=== PATIENT | female | born 1955 | race African-American/Black ===

== ENCOUNTER 2020-10-09 08:29 | Outpatient (CLI) | payer OTHER, SELFPAY | END 2020-10-09 08:30 | disposition home or self-care (01) | LOC: ANHCOVIDVC 08:29 | DX: Z23 Encounter for immunization (principal) | CPT/HCPCS: 0001A; 91300 ==

== ENCOUNTER 2020-10-30 08:21 | Outpatient (CLI) | payer OTHER, SELFPAY | END 2020-10-30 08:22 | disposition home or self-care (01) | LOC: ANHCOVIDVC 08:21 | DX: Z23 Encounter for immunization (principal) | CPT/HCPCS: 0002A; 91300 ==

== ENCOUNTER 2021-08-13 16:51 | Emergency (ER) | payer OTHER, SELFPAY ==
[2021-08-13] VITALS (11 sets, daily range): BP systolic 113–223; BP diastolic 61–98; PULSE 53–96; RESP 13–19; TEMP 36.1; O2SAT 100
--- NOTE | ~2021-08-13 | XR_ITS ---
EXAMINATION: XR chest 2V DATE: 08/13/2021 19:55 INDICATION: Hypertension TECHNIQUE: AP and lateral views of the chest are obtained. COMPARISON: 09/28/2012 FINDINGS: The lungs are free of acute opacities. There is no pleural effusion or pneumothorax. The ca rdiomediastinal silhouette is normal. There is mild thoracic spondylosis. IMPRESSION: 1. No acute cardiopulmonary abnormality. Reviewed, dictated and finalized at location F. DDLE BUG DRIVER
--- NOTE | 2021-08-13 18:43 | PC.NURSE ---
pt states she was having dizziness and lightheadedness this am. bp was high. pt then took sudaphed for sinus congestion. later started losartan 50 mg for htn. states has been unable to get bp down. pt also noting some left lower quad pain and pain into groin.
--- NOTE | 2021-08-13 19:20 | ED.GENADULT ---
HPI - General Adult General Chief complaint: Recheck/Abnormal Lab/Rx Stated complaint: high blood pressure Time Seen by Provider: 08/13/21 18:40 History of Present Illness HPI narrative: 66-year-old female with newly diagnosed hypertension presents to the emergency room for evaluation of elevated blood pressure. Patient states her blood pressures have been elevated over the last few weeks. Patient did have follow-up with her primary care physician and was started on losartan 50 mg p.o. Patient did have her first dose of losartan today. Patient states that when she woke up this morning she was having some sinus congestion which is not uncommon for her and she took some Sudafed. Patient states over the course of the day she has had worsening blood pressures. Patient's primary complaint is sinus congestion. Patient denies any headache. Patient denies any chest pain or shortness of breath. Patient does report intermittent dizziness which she associates with her chronic sinus infections. Related Data Home Medications Medication Instructions Recorded Confirmed metformin 500 mg tablet 500 mg PO BID 10/23/20 multivitamin 1 tablet PO DAILY 10/23/20 gabapentin 300 mg PO DAILY 08/13/21 losartan 50 mg PO DAILY 08/13/21 meloxicam 15 mg PO 08/13/21 minocycline 100 mg PO BID 08/13/21 Allergies Allergy/AdvReac Type Severity Reaction Status Date / Time ampicillin Allergy Unknown Unknown Verified 08/13/21 18:49 morphine Allergy Unknown Unknown Verified 08/13/21 18:49 Penicillins Allergy Unknown Unknown Verified 08/13/21 18:49 Review of Systems Review of Systems: CONSTITUTIONAL: Denies fever, chills, or sweats. EYES: Denies visual changes, redness, or discharge. ENT: Does report sinus congestion CARDIOVASCULAR: Denies chest pain, palpitations, or edema. RESPIRATORY: Denies cough or dyspnea. GASTROINTESTINAL: Does have chronic abdominal pain for which she has had previous work-up for. Associated nausea GENITOURINARY: Denies dysuria or hematuria. SKIN: Denies rash or itching. MUSCULOSKELETAL: Denies back pain, joint pain, or myalgia. NEUROLOGIC: Denies headache, numbness, or weakness. PSYCHIATRIC: Denies anxiety or depression. [facility] Past Medical History Medical History (Updated 08/14/21 @ 16:37 by Dayron Warren MD) Diabetes Surgical History Surgical History (Updated 10/23/20 @ 10:40 by Mely Estrada MA) History of section History of elective History of hip replacement History of lumpectomy History of total hysterectomy [place] teeth removed Family History Family History Mother Hypertension Family history of smoking Family history of malignant neoplasm of uterus Father Family history of alcoholism Sibling Family history of hypothyroidism Family history of diabetes mellitus in first degree relative Hypertension Other Family history of malignant neoplasm of breast Social History Social History (Updated 10/23/20 @ 10:39 by Mely Estrada MA) Smoking status: Never smoker Alcohol intake: current Substance use: never Exam Narrative: APPEARANCE: Well appearing, well-nourished. HEAD: normocephalic, atraumatic. EYES: PERRLA/EOMI, conjunctivae clear. NOSE: Normal no drainage THROAT: Pharynx clear, no exudate. NECK: Supple. No adenopathy, no masses. RESPIRATORY: Airway patent, respirations nonlabored. Clear to auscultation bilaterally, no rales, rhonchi, wheezing. CARDIOVASCULAR: Regular rate and rhythm without murmurs rubs or gallops. ABDOMINAL: Soft, nontender, nondistended, normal bowel sounds MUSCULOSKELETAL: Moves all extremities. Strength/ROM intact, No edema, No calf tenderness. NEURO: Alert. Cranial nerves II through XII intact. SKIN: Warm, dry. Normal Color Course Reevaluation(s) Reevaluation #1: Patient was able to ambulate Emergency Department and felt improved. Patient denies any dizziness or
--- NOTE | 2021-08-13 19:31 | ECG_ITS ---
Measurements Intervals [place] Rate: 73 P: 69 [place]: 154 QRS: 24 QRSD: 89 T: -4 QT: 402 QTc: 446 Interpretive Statements SINUS RHYTHM EARLY PRECORDIAL R/S TRANSITION BORDERLINE T WAVE ABNORMALITY- INFERIOR LEADS BORDERLINE ECG Electronically Signed On 08-13-2021 20:26:59 V BELT MOLD ASSEMBLER AND CURER by Garrison Maxwell D.O.
[2021-08-13] MEDS: hydrALAZINE HCL 20 MG/ML VIAL IV PUSH (19:38)
[2021-08-13 19:48] LABS: Basophils Percent Auto 0.4 % (0.2-1.2); Eosinophils Absolute Auto 0.1 K/mm3 (0-0.3); Eosinophils Percent Auto 1.9 % (0-4.4); Hematocrit 41.4 % (37.0-47.0); Hemoglobin 14.5 g/dL (12.0-15.0); Lymphocytes Absolute Auto 2.14 K/mm3 (0.9-3.2); Lymphocytes Percent Auto 46.1 % (18.3-44.2); Mean Corpuscular Hemoglobin 28.3 pg (26-34); Mean Corpuscular Volume 80.9 fl (80-100); Mean Platelet Volume 9.8 fl (7.4-10.4); Monocytes Absolute Auto 0.5 K/mm3 (0.1-0.6); Monocytes Percent Auto 9.9 % (2.6-8.5); Neutrophils Absolute Auto 1.9 K/mm3 (1.3-6.7); Neutrophils Percent Auto 41.7 % (45.5-73.1); Platelet Count Result 254 k/mm3 (150-375); Red Blood Count 5.12 M/mm3 (4.2-5.4); Red Cell Distribution Width 14.4 % (11.5-14.5); White Blood Count 4.6 K/mm3 (4.5-10.0)
[2021-08-13 19:57] LABS: Alanine Aminotransferase 36 U/L (4-35); Albumin Level 4.8 g/dL (3.5-5.1); Alkaline Phosphatase 167 U/L (38-126); Anion Gap 8 mmol/L (8-16); Aspartate Amino Transferase 34 U/L (14-36); Bilirubin,Total 0.6 mg/dL (0.2-1.3); Blood Urea Nitrogen 16 mg/dL (7-17); Calcium 9.7 mg/dL (8.4-10.2); Carbon Dioxide 28 mmol/L (22-30); Chloride 102 mmol/L (98-107); Estimated CRCL calculation 92 ml/min; Estimated Glomerular Filt Rate > 60; Glucose 119 mg/dL (65-110); Sodium 138 mmol/L (137-145)
[2021-08-13 20:14] LABS: Troponin I 0.013 ng/mL (0.000-0.034)
[2021-08-13 20:23] LABS: Glucose Point of Care 160 mg/dl (65-105)
[2021-08-13] MEDS: SODIUM CHLORIDE 0.9% IV 1,000 ML 999 ML IV CONT (20:30)
[2021-08-13 22:17] LABS: Add Urine Microscopic? YES; Appearance Urine Clear (Clear); Bacteria Urine Trace /hpf; Bilirubin Urine Negative (Negative); Blood Urine Negative (Negative); Color Urine Straw (Yellow); Glucose Urine UA Negative (Negative); Ketones Urine Trace mg/dL (Negative); Leukocyte Esterase Ur Trace LEU/UL (Negative); Mucus Urine Rare /lpf; Nitrate Urine Negative (Negative); Protein Urine Negative (Negative); RBC Urine 0-2 /hpf (0-2); Specific Grav Ur 1.012 (1.001-1.035); Urobilinogen Urine Negative mg/dL (<2.0); WBC Urine 21-30 /hpf
== END 2021-08-13 22:37 | disposition home or self-care (01) ==
PROVIDERS: Emergency Provider Emergency Medicine
DX: I10 Essential (primary) hypertension (principal); J32.9 Chronic sinusitis, unspecified; E11.9 Type 2 diabetes mellitus without complications; Z79.84 Long term (current) use of oral hypoglycemic drugs; R94.31 Abnormal electrocardiogram [ECG] [EKG]
CPT/HCPCS: 36415; 71046; 80053; 81001; 82948; 84484; 85025; 87086; 87088; 93005; 96361; 96374; 99284; J0360; J7030

== ENCOUNTER 2021-08-14 19:30 | Emergency (ER) | payer OTHER, SELFPAY ==
[2021-08-14 19:54] VITALS: BP 179/90; PULSE 70; RESP 16; TEMP 36.3; O2SAT 100
[2021-08-14 22:48] VITALS: BP 166/89; PULSE 76; RESP 16; O2SAT 95
--- NOTE | 2021-08-14 22:52 | PC.NURSE ---
Pt ambulatory to Intake desk at this time and states I am leaving. My is here to pick me up. Pt walked out w/ steady gait and NAD noted.
== END 2021-08-15 03:17 | disposition left against medical advice (07) ==
LOC: ANHED 22:56
DX: I10 Essential (primary) hypertension (principal)
CPT/HCPCS: 99199

== ENCOUNTER 2021-08-16 09:58 | Observation (INO) | payer OTHER, SELFPAY ==
[2021-08-16] VITALS (42 sets, daily range): BP systolic 85–194; BP diastolic 51–120; PULSE 57–117; RESP 12–100; TEMP 36.4; O2SAT 17–100
--- NOTE | ~2021-08-16 | US_ITS ---
EXAMINATION: US carotid duplex BI DATE: 08/17/2021 08:47 INDICATION: Disturbance of skin sensation with numbness to the face TECHNIQUE: Grayscale, color Doppler, and pulsed Doppler images of the cervical carotid arteries were obtained. The degree of vessel stenosis is placed in one of the following categories: normal, <50%, 5 0-69%, >=70% but less than near-occlusion, near-occlusion, or total occlusion. Note that percent sten osis relative to normal distal artery lumen diameter is indirectly measured from velocity measurement s as described by Jerome, et al. Radiology 2003; 229:340-346. COMPARISON: None. FINDINGS: RIGHT: The right common carotid artery (CCA) peak systolic velocity (PSV) is 117 cm/s. The right internal ca rotid artery (ICA) PSV is 93 cm/s. The right ICA end-diastolic velocity (EDV) is 32 cm/s. The right I CA/CCA PSV ratio is 0.8. Grayscale and color Doppler images yield an estimate of <50% diameter reduct ion from plaque in the ICA. The external carotid artery (ECA) PSV is 72 cm/s. There is antegrade flow in the right vertebral artery. LEFT: The left CCA PSV is 99 cm/s. The left ICA PSV is 76 cm/s. The left ICA EDV is 28 cm/s. The left ICA/C CA PSV ratio is 0.8. Grayscale and color Doppler images yield an estimate of <50% diameter reduction from plaque in the ICA. The ECA PSV is 66 cm/s. There is antegrade flow in the left vertebral artery. IMPRESSION: 1. <50% stenosis in the right internal carotid artery. 2. <50% stenosis in the left internal carotid artery. Reviewed, dictated and finalized at location A. E CLERK
--- NOTE | ~2021-08-16 | XR_ITS ---
EXAMINATION: XR chest 2V DATE: 08/16/2021 12:25 INDICATION: Chest pain. Hypertension. TECHNIQUE: frontal and lateral views of the chest were obtained. COMPARISON: Chest radiograph dated 08/13/2021 FINDINGS: The lungs remain clear with no focal airspace opacities, pulmonary edema, pleural effusion or pneumot horax. The cardiomediastinal silhouette is normal. Thoracic spondylosis. IMPRESSION: 1. No acute cardiopulmonary disease. Reviewed, dictated and finalized at location A. CAL REPRESENTATIVE
--- NOTE | ~2021-08-16 | CT_ITS ---
EXAMINATION: CT soft tissue neck w con EXAM DATE: 08/16/2021 13:25 INDICATION: Neck swelling. TECHNIQUE: Spiral CT of the neck was performed following intravenous injection of 75 mL Omnipaque 350 . Axial, coronal and sagittal images were reviewed. The dose-length product (DLP) for this examinat ion was 547.52 mGy-cm. The exposure was tailored according to patient size (auto mA exposure control ), and iterative reconstruction (ASIR) was used as additional dose reduction technique. There is no prior study for comparison. FINDINGS: The thyroid gland is unremarkable. Large but symmetric parotid glands without focal mass. Submandibular glands unremarkable. There is no cervical lymphadenopathy. There are no masses ident ified. The superior mediastinum is unremarkable. The airway is unremarkable. Parapharyngeal an d pre-glottic fat planes are preserved. The opacified vasculature is patent. The orbits are unrem arkable. Visualized sinuses and mastoid air cells are well aerated. Lung apices are clear. Cervi sheeba spondylosis with large anteriorly based endplate osteophytes. IMPRESSION: No acute neck findings. Reviewed, dictated and finalized at location G. IGHT CUTTER IMPRESSION: No acute neck findings.
--- NOTE | ~2021-08-16 | CT_ITS ---
EXAMINATION: CT brain wo con DATE: 08/16/2021 18:41 INDICATION: Left facial numbness. TECHNIQUE: Computed tomography (CT) of the head was performed without intravenous contrast. The mA wa s adjusted according to patient size. Iterative reconstruction technique was employed. The dose-lengt h product was 529.67 mGy-cm. COMPARISON: Head CT 02/14/2005 FINDINGS: There is no intracranial hemorrhage or acute infarction. There is a 6 mm subependymal mass in right lateral ventricle that is isodense to daniels matter. The ventricles are normal in size. The pa ranasal sinuses are clear. The mastoid air cells are normal. The orbits are normal. IMPRESSION: 1. 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 Reviewed, dictated and finalized at location A. R INSPECTION MECHANIC IMPRESSION: 1. 6 mm subependymal mass in right lateral ventricle, stable from 02/14/2005, mo st likely daniels matter heterotopia.
--- NOTE | ~2021-08-16 | MR_ITS ---
EXAMINATION: MR brain/brain stem wo/w con EXAM DATE: 08/17/2021 13:30 INDICATION: Benign brain tumor . Left facial paresthesia. TECHNIQUE: Magnetic resonance imaging (MRI) of the brain/brain stem obtained without contrast. Sagit calderon T1, axial diffusion, gradient echo (T2*), T1, T2, FLAIR sequences obtained. Patient was then inj ected with 17 cc intravenous Multihance contrast. Axial and coronal postcontrast T1 weighted sequence s obtained. Correlation is made to head CT from 2004. FINDINGS: There is 6 mm nodule of soft tissue along the ependymal surface of the right lateral ventri terrie following daniels matter signal intensity on all pulse sequences, consistent with small region of he terotopia. This is unchanged compared to a head CT from 2004. There are no areas of restricted diffus ion to suggest acute infarction. There is no acute hemorrhage seen on the T2*, a hemosiderin sensiti ve sequence. The ventricles are normal in size. There are no extra-axial collections. Flow voids a re seen in the cerebral arteries on the T2-weighted sequences consistent with their expected patency. The orbits are unremarkable. Soft tissue is unremarkable. There are no areas of abnormal enhance ment on the postcontrast images. IMPRESSION: 1. 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 2. Otherwise normal brain MRI examination. Reviewed, dictated and finalized at location G. FLUMER
--- NOTE | 2021-08-16 10:35 | ECG_ITS ---
Measurements Intervals [place] Rate: 62 P: 16 SC: 168 QRS: 24 QRSD: 87 T: -27 QT: 401 QTc: 410 Interpretive Statements SINUS RHYTHM CANNOT RULE OUT SEPTAL INFARCT, AGE INDETERMINATE BORDERLINE T WAVE ABNORMALITY- ANTEROLAT/INF LEADS BASELINE WANDER- V2-V3 ABNORMAL ECG Electronically Signed On 08-16-2021 11:54:27 VERSE WRITER by Garrison Maxwell D.O.
[2021-08-16] MEDS: ASPIRIN 81 MG CHEWABLE TABLET 324 MG PO (11:41)
[2021-08-16 11:43] LABS: Basophils Percent Auto 0.8 % (0.2-1.2); Eosinophils Absolute Auto 0.1 K/mm3 (0-0.3); Eosinophils Percent Auto 3.1 % (0-4.4); Hematocrit 42.5 % (37.0-47.0); Immature Granulocyte Absolute 0.01 K/mm3 (0.00-0.031); Immature Granulocyte Percent A 0.3 % (0-0.5); Lymphocytes Absolute Auto 1.77 K/mm3 (0.9-3.2); Lymphocytes Percent Auto 46.3 % (18.3-44.2); Mean Corpuscular HGB Conc 35.3 g/dl (32-36); Mean Corpuscular Hemoglobin 28.5 pg (26-34); Mean Corpuscular Volume 80.8 fl (80-100); Monocytes Absolute Auto 0.4 K/mm3 (0.1-0.6); Monocytes Percent Auto 10.7 % (2.6-8.5); Neutrophils Absolute Auto 1.5 K/mm3 (1.3-6.7); Neutrophils Percent Auto 38.8 % (45.5-73.1); Platelet Count Result 288 k/mm3 (150-375); Red Blood Count 5.26 M/mm3 (4.2-5.4); Red Cell Distribution Width 14.6 % (11.5-14.5); White Blood Count 3.8 K/mm3 (4.5-10.0)
[2021-08-16 11:56] LABS: Alanine Aminotransferase 41 U/L (4-35); Albumin Level 5.1 g/dL (3.5-5.1); Alkaline Phosphatase 180 U/L (38-126); Anion Gap 9 mmol/L (8-16); Aspartate Amino Transferase 40 U/L (14-36); Bilirubin,Total 0.7 mg/dL (0.2-1.3); Blood Urea Nitrogen 11 mg/dL (7-17); Calcium 9.7 mg/dL (8.4-10.2); Carbon Dioxide 28 mmol/L (22-30); Chloride 101 mmol/L (98-107); Estimated CRCL calculation 92 ml/min; Estimated Glomerular Filt Rate > 60; Glucose 141 mg/dL (65-110); Lipase 112 U/L (23-300); Potassium 4.2 mmol/L (3.4-5.0); Sodium 138 mmol/L (137-145)
--- NOTE | 2021-08-16 12:03 | ED.GENADULT ---
HPI - General Adult General Chief complaint: Recheck/Abnormal Lab/Rx Stated complaint: high blood pressure/facial swelling Time Seen by Provider: 08/16/21 11:27 Source: patient and RN notes reviewed History of Present Illness HPI narrative: Patient is a 66 y/o female complaining of severe hypertension for about 1 week. She states that she was in her doctor's office last Monday and her BP was 170s. She was started on Losartan. She had no history of hypertension prior to that. She states that she was in her doctor's office for hip pain 2 months ago and BP was fine during that visit. She states that her BP was in 190s. She was instructed to double dosage of Losartan, but it has not helped. She was recently told by a provider that she may have adrenal problems. She also notice slight left sided chest pain today. She rates her pain as 3/10 and describes it has a pressure. She has pain radiation to left arm. She also noticed some left neck swelling. Related Data Home Medications Medication Instructions Recorded Confirmed metformin 500 mg tablet 500 mg PO BID 10/23/20 08/16/21 multivitamin 1 tablet PO DAILY 10/23/20 08/16/21 gabapentin 300 mg PO DAILY 08/13/21 08/16/21 losartan 50 mg PO DAILY 08/13/21 08/16/21 meloxicam 15 mg PO DAILY 08/13/21 08/16/21 minocycline 100 mg PO BID 08/13/21 08/16/21 Allergies Allergy/AdvReac Type Severity Reaction Status Date / Time ampicillin Allergy Intermediate Rash Verified 08/16/21 11:32 morphine Allergy Intermediate Itching Verified 08/16/21 11:32 Penicillins Allergy Intermediate Rash Verified 08/16/21 11:32 hydralazine AdvReac Hypotension Verified 08/16/21 17:02 Review of Systems Constitutional: Constitutional: Denies chills, Denies fever(s), Denies headache(s) and Denies weakness Eyes: Eyes: Denies blurry vision ENT: Denies headache(s) and Denies neck pain Cardiovascular: Cardiovascular: Reports chest pain and Denies dyspnea Respiratory: Respiratory: Denies cough and Denies dyspnea Gastrointestinal: Gastrointestinal: Denies abdominal pain, Denies diarrhea, Denies nausea and Denies vomiting Genitourinary: Genitourinary: Denies hematuria and Denies dysuria Musculoskeletal: Musculoskeletal: Denies back pain and Denies neck pain Neurologic: Denies headache(s) and Denies weakness PMF Past Medical History Medical History Diabetes HTN (hypertension) Osteoarthritis Surgical History Surgical History History of section History of elective History of hip replacement xander History of lumpectomy History of total hysterectomy [place] teeth removed Family History Family History (Updated 08/16/21 @ 18:10 by Marilee Raphael NP) Mother Hypertension Family history of smoking Family history of malignant neoplasm of uterus Acute myocardial infarction Father Family history of alcoholism Sibling Family history of hypothyroidism Family history of diabetes mellitus in first degree relative Diabetes mellitus brother Hypertension brother Acute myocardial infarction brother Other Family history of malignant neoplasm of breast Social History Social History (Updated 08/16/21 @ 18:12 by Marilee Raphael NP) Social History: no children crispin aguirre Smoking status: Never smoker Alcohol intake: current Substance use: never Exam Const: General: no acute distress and well developed Orientation/consciousness: oriented to person, oriented to place, oriented to time and patient oriented x3 HENMT: Head: normocephalic Ears: external ears normal General nose exam: Normal external nose present Eyes: General: appearance normal, both eyes and all related structures Conjunctivae: conjunctivae normal Neck: Neck: normal visual inspection and full ROM Chest: Chest palpation & inspection: normal inspection of
[2021-08-16 12:04] LABS: INR 1.1; Prothrombin Time 13.7 Seconds (11.1-14.7)
[2021-08-16 12:05] LABS: Partial Thromboplastin Time 25.2 SECONDS (22.3-36.8)
[2021-08-16 12:07] LABS: Troponin I 0.016 ng/mL (0.000-0.034)
[2021-08-16 12:53] LABS: Add Urine Microscopic? NO; Appearance Urine Clear (Clear); Bilirubin Urine Negative (Negative); Blood Urine Negative (Negative); Color Urine Straw (Yellow); Glucose Urine UA Negative (Negative); Ketones Urine Negative (Negative); Leukocyte Esterase Ur Negative LEU/UL (Negative); Nitrate Urine Negative (Negative); Protein Urine Negative (Negative); Specific Grav Ur 1.005 (1.001-1.035); Urobilinogen Urine Negative mg/dL (<2.0)
[2021-08-16] MEDS: amLODIPine BESYLATE 5 MG TABLET 10 MG PO (13:05)
--- NOTE | 2021-08-16 13:19 | PC.NURSE ---
Pt. to CT
[2021-08-16] MEDS: CAPTOPRIL (CAPOTEN) 25 MG TABLET PO (13:20)
[2021-08-16 13:46] LABS: Troponin I 0.014 ng/mL (0.000-0.034)
[2021-08-16] MEDS: hydroCHLOROthiazide 25 MG TABLET PO (14:14)
[2021-08-16] MEDS: hydrALAZINE HCL 20 MG/ML VIAL IV PUSH (14:55)
[2021-08-16] MEDS: SODIUM CHLORIDE 0.9% IV 1,000 ML 999 ML IV CONT (16:13)
--- NOTE | 2021-08-16 17:17 | PC.NURSE ---
corporation secretary brought room tray to pt. pt is sitting up and eating at this time.
--- NOTE | 2021-08-16 18:07 | PM.IMHP ---
H&P: HPI History of Present Illness Date/Time: 08/16/21 18:07 this is a 66 year old female patient was fairly healthy until just recently when she discovered that she had an elevated blood pressure. The patient recently was started on blood pressure medicine this past . Her systolic blood pressure was in the 120s. She was started on losartan. The patient has been taking Mobic for her chronic bilateral hip pain. She has had hip replacements in both hips and has been having some discomfort there. The patient stated that she noticed that her blood pressure was not elevated to should start taking Mobic. After reviewing the side effects Mobic can cause some hypertension. The patient was also complaining of having some left jaw pain and some numbness to the left side of her face. The patient has been here to the emergency room a couple times since she visited her primary care doctor. The patient was here in the emergency room on 08/13 to be evaluated for her blood pressure and sinus congestion. She also had been taking Sudafed which could be elevating her blood pressure is well. The patient stated that she went home med that visit and her blood pressure had come down. The next day blood pressure went back up and she had a virtual visit. The patient had been doubling up on her losartan and still her blood pressure remains elevated. The patient stated she return back to the emergency room but her blood pressure came back down and therefore she was not seen in the emergency room she was just and triaged and decided to go home at that time. Today she returned for fear that her blood pressure was elevated again. I explained to her that sometimes it does take a while for the blood pressure medicine to take affect. Her blood pressure was initially 193/120 and the patient was very fearful that she was having a stroke. The patient was given an aspirin in the emergency room as well as kappa 10, Norvasc, hydrochlorothiazide, Apresoline, and IV fluids. Patient slightly tachycardic when I saw her and blood pressure was elevated still so I ordered metoprolol and the patient was agreeable with metoprolol. I did order a CT scan which was read as the following1. 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 I explained to the patient that this is a benign finding and most the time it is incidental and the patient is typically asymptomatic. Since this reading states that this is stable leads me to believe that it has not increased in size. I explained that this would not be causing any of her symptoms. She also had a soft tissue neck CT which was read as no acute neck findings. Chest x-ray was read as no acute cardiopulmonary disease. The patient is being admitted to observation status on 08/16/2021. Chief Complaint: High blood pressure Review of Systems Review of Systems: All systems reviewed & are unremarkable except as noted in HPI and below Constitutional: Constitutional: Reports as per HPI and Reports no additional constitutional complaints Eyes: Eyes: Reports as per HPI and Reports no additional eye complaints ENT: Reports system reviewed and no additional complaints, except as documented and Reports Normal hearing present Cardiovascular: Cardiovascular: Reports no additional cardiovascular complaints Respiratory: Respiratory: Reports no additional respiratory complaints and Reports no additional respiratory complaints Gastrointestinal: Gastrointestinal: Reports as per HPI and Reports no additional gastrointestinal complaints Musculoskeletal: Musculoskeletal: Reports no additional musculoskeletal complaints Integumentary/Breasts: Skin/Breast: Reports system reviewed and no additional complaints, except as docu and Reports as per HPI Neurologic: Reports system reviewed and no additional complaints, except as documented, Reports as per HPI and Reports Normal hearing present Psychiatric:
[2021-08-16 18:24] LABS: Troponin I < 0.012 ng/mL (0.000-0.034)
--- NOTE | 2021-08-16 18:37 | PC.NURSE ---
Called lab and spoke to to add on Ron Random
--- NOTE | 2021-08-16 18:44 | PC.NURSE ---
Called lab and spoke to Edouard about TSH. He is supposed to check and see what is going on with lab work
[2021-08-16] MEDS: METOPROLOL TARTRATE TAB 25 MG, METOPROLOL TARTRATE TAB 12.5 MG 37.5 MG PO (20:48)
[2021-08-16] MEDS: DICLOFENAC SODIUM 1% 100 GM GEL (*BKC) 1 APPLIC TOPICAL (20:48)
--- NOTE | 2021-08-16 22:10 | ADMGEN ---
This patient, Amber Burleson, was admitted to IMU Room 210-01. Patient/family oriented to hospital policies and general routines including ID bracelet, bed and alarms, visiting hours, pain management, procedures, bathroom and other care routines, personal items, smoking policy, room service/diet, and visiting hours. Information on how to activate the Rapid Response Team has been discussed. Patient/Family are encouraged to report perceived risks to care and to ask questions if they do not understand what they are told or what they should do.
[2021-08-17] VITALS (12 sets, daily range): BP systolic 119–154; BP diastolic 67–96; PULSE 54–87; RESP 14–20; TEMP 36.5–36.8; O2SAT 97–100
[2021-08-17] MEDS: diphenhydrAMINE HCl CAP 25 MG CAPSULE PO (00:06)
[2021-08-17] MEDS: ACETAMINOPHEN 500 MG TABLET 1000 MG PO ×2 (00:06→09:42)
[2021-08-17 05:02] LABS: Cholesterol 209 mg/dL (0-200); HDL Direct 104 mg/dL; Lactic Acid Reflex 1.1 mmol/L (0.7-2.1); Triglycerides 72 mg/dL (<150)
[2021-08-17 05:06] LABS: CRP 0.7 mg/dL (<1.0); Magnesium 2.4 mg/dL (1.6-2.3)
[2021-08-17 05:13] LABS: LDL Cholesterol Direct 76 mg/dL
[2021-08-17 05:36] LABS: Cortisol Random 5.56 ug/dL
[2021-08-17 08:52] LABS: Glucose Point of Care 154 mg/dl (65-105)
[2021-08-17] MEDS: ENOXAPARIN 40 MG/0.4 ML SYRINGE SUB-Q (09:40)
[2021-08-17] MEDS: metFORMIN HCL 500 MG TABLET PO (09:40)
[2021-08-17] MEDS: MULTIVITAMINS THERAPEUTIC TAB (*BKC) 1 TABLET PO (09:40)
[2021-08-17] MEDS: GABAPENTIN 300 MG CAPSULE PO (09:41)
[2021-08-17] MEDS: METOPROLOL TARTRATE TAB 25 MG, METOPROLOL TARTRATE TAB 12.5 MG 37.5 MG PO (09:57)
[2021-08-17] MEDS: DICLOFENAC SODIUM 1% 100 GM GEL (*BKC) 1 APPLIC TOPICAL ×2 (09:58→13:35)
[2021-08-17 10:44] LABS: Cortisol Random 5.81 ug/dL
[2021-08-17 12:52] LABS: Glucose Point of Care 164 mg/dl (65-105)
--- NOTE | 2021-08-17 14:41 | WPDNEURCNPN ---
Assessment and Plan Additional Plan DOCUMENTED SMALL FOCUS OF PATRICIO MATTER ECTOPIA ALONG THE RIGHT LATERAL VENTRICLE EPENDYMAL RECENT BUT WITHOUT EVIDENCE OF HYDROCEPHALUS AND WITH NO HISTORY OF SEIZURE WILL BE LEFT SUCH AND FOLLOWED IN THE OFFICE IN 1 YEAR NO SURGICAL INTERVENTION IS NECESSARY Consult date: 08/17/21 HPI: Amber Burleson is a 66 year old female HAS BEEN ADMITTED TO [facility] THROUGH THE EMERGENCY ROOM FOR THE COMPLAINTS OF ELEVATED BLOOD PRESSURE IN ADDITION TO THE ONGOING HISTORY OF CHRONIC BILATERAL HIP PAIN AND WITH A HISTORY OF HIP REPLACEMENT IN BOTH HIPS BUT ONGOING DISCOMFORT ADDITIONALLY SHE WAS COMPLAINING OF LEFT JAW PAIN ALONG WITH NUMBNESS OF THE LEFT SIDE OF HER FACE. EVALUATION INCLUDED THE CT SCAN OF THE HEAD WHICH DOCUMENTED 1.6MM SUBEPENDYMAL MASS IN THE RIGHT LATERAL VENTRICLE WHICH HAS BEEN STABLE SINCE 02/14 TO . SHE HAS ALSO HAD THE CT SCAN OF THE HEAD WHICH IS NEGATIVE, SHE IS A NEVER SMOKER NEVER DRINKER, AND HER OUTPATIENT MEDICATIONS INCLUDE MAINLY THE METFORMIN GABAPENTIN LOSARTAN BUT WITH MULTIPLE ALLERGIES, INVESTIGATIONS ALSO INCLUDE THE MRI OF THE BRAIN WHICH REVEALED SMALL FOCUS OF PATRICIO MATTER ECTOPIA ALONG THE RIGHT LATERAL VENTRICLE SUBEPENDYMAL REGION BUT NO EVIDENCE OF HYDROCEPHALUS, DOPPLER STUDY OF THE CAROTID IS NORMAL Review of Systems Review of Systems: All systems reviewed & are unremarkable except as noted in HPI and below PMFSH Past Medical History Medical History Brain mass Diabetes HTN (hypertension) Osteoarthritis Surgical History Surgical History History of section History of elective History of hip replacement xander History of lumpectomy History of total hysterectomy [place] teeth removed Family History Family History Mother Hypertension Family history of smoking Family history of malignant neoplasm of uterus Acute myocardial infarction Father Family history of alcoholism Sibling Family history of hypothyroidism Family history of diabetes mellitus in first degree relative Diabetes mellitus brother Hypertension brother Acute myocardial infarction brother Other Family history of malignant neoplasm of breast Social History Social History Social History: The patient is and has no children. Her is a durable power real estate attorney for healthcare. She is a lifelong nonsmoker and rarely drinks she does not use any marijuana or illicit drugs. She works for a [employer]. Smoking status: Never smoker Alcohol intake: current Drinks per week: 4 Substance use: never Spiritual care concerns: No Meds Home Medications and Allergies Home Medications Medication Instructions Recorded Confirmed Type metformin 500 mg tablet 500 mg PO BID 10/23/20 08/16/21 History multivitamin 1 tablet PO DAILY 10/23/20 08/16/21 History gabapentin 300 mg PO DAILY 08/13/21 08/16/21 History losartan 100 mg PO DAILY 08/13/21 08/16/21 History acetaminophen [Tylenol Extra 1,000 mg PO Q6H PRN 08/16/21 08/16/21 History Strength] diphenhydramine-acetaminophen 1 tablet PO HS PRN 08/16/21 08/16/21 History [Tylenol PM Extra Strength] Allergies Allergy/AdvReac Type Severity Reaction Status Date / Time ampicillin Allergy Intermediate Rash Verified 08/16/21 11:32 morphine Allergy Intermediate Itching Verified 08/16/21 11:32 Penicillins Allergy Intermediate Rash Verified 08/16/21 11:32 hydralazine AdvReac Hypotension Verified 08/16/21 17:02 Vital Signs Vital Signs - 24 hr 08/16/21 14:45 08/16/21 14:48 08/16/21 15:00 Temperature Pulse Rate 59 L 60 60 Respiratory Rate 16 17 16 Blood Pressure 175/103 H Pulse Oximetry 100 100 100 08/16/21 15:01 08/16/21 15:15 08/16/21 15:18 Temper
--- NOTE | 2021-08-17 15:05 | PC.NURSE ---
Pt off of tele monitor from aprox 0913 to 0930. Pt took a shower after being told not to.
--- NOTE | 2021-08-17 15:46 | PM.DS ---
DS: Admitting Diagnosis Discharge Date 08/17/21 Admitting Diagnosis Elevated blood pressure DS: Discharge Diagnosis Discharge Diagnosis (1) HTN (hypertension): Qualifiers: Hypertension type: unspecified Qualified Code(s): I10 - Essential (primary) hypertension Code(s): I10 - Essential (primary) hypertension Status: Chronic Assessment and Plan: The patient recently was diagnosed with hypertension and was started on losartan. The patient's BP remained poorly controlled at home. BP was elevated here treated with multiple oral medications and hydralazine IV. She was changed to metoprolol monotherapy by the admitting provider as her heart rate was elevated as well. Her CBC and CMP were normal except ALT 36 and AP 167. Lipase, TSH and Cortisol level okay. Total chol 206 but LDL 76. She was monitored with sliding scale and glucose remained well controlled. He A1c was 7.0. UA was clear. CXR clear. CT neck showing no acute findings. 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 Carotid US showing <50% stenosis in the bilateral internal carotid artery. Brain MR showing small focus of daniels matter ectopia along right lateral ventricle ependymal region. Her BP remained stable on just the metoprolol with SBP 130-150 range. She was educated that Sudafed and NSAIDs can increase blood pressure including Mobic. She feels well. No CP or SOB. She feels ready for discharge. She overall did well and was able to be discharged home on 08/17/21. (2) Diabetes: Code(s): E11.9 - Type 2 diabetes mellitus without complications Status: Chronic Assessment and Plan: A1c 7.0. We resumed her metformin. She was started on sliding scale insulin with Accu-Cheks. (3) Brain mass: Code(s): G93.89 - Other specified disorders of brain Status: Chronic Assessment and Plan: As above. Appears to be stable from 2004. neurology did see the patient here and had no further recommendations. DS: Summary Hospital Course Reason for hospitalization: 66yo female with HTN here for elevated blood pressure. Please see H&P for details Hospital Course: Please see above for details of hospital course Status at Discharge Cognitive/behavioral status at discharge: stable Time Spent with Patient Time attestation: Total time spent providing and/or coordinating discharge services: 35 minutes Time spent: Greater than 30 minutes Exam Narrative: AF 97.7 137/78 57 14 100%ra Gen - NARD Chest - CTA bilaterally, nml RR CV - RRR S1/S2; Tele showing no acute dysrhythmias Abd - Soft, NT/ND, Positive BS Ext - No pedal edema Neuro - Alert and oriented. Nonfocal exam. Psych - Nml mood and affect Skin - Warm and dry DS: Data Data Completed and Pending Labs on day of discharge: Labs from last 24 hours 08/17/21 08/17/21 08/17/21 12:04 08:13 04:33 POC Capillary Glucose 164 H 154 H Hemoglobin A1c 7.0 H Lactic Acid Magnesium Troponin I C-Reactive Protein Triglycerides Cholesterol LDL Cholesterol Direct HDL Direct TSH TSH (Reflex) Random Cortisol 08/17/21 08/17/21 08/17/21 04:33 04:33 04:33 POC Capillary Glucose Hemoglobin A1c Lactic Acid Magnesium Troponin I C-Reactive Protein Triglycerides 72 Cholesterol 209 H LDL Cholesterol Direct 76 HDL Direct 104 TSH TSH (Reflex) 1.050 Random Cortisol 5.56 08/17/21 08/17/21 08/17/21 04:33 04:33 04:30 POC Capillary Glucose Hemoglobin A1c Lactic Acid 1.1 Magnesium 2.4 H Troponin I C-Reactive Protein 0.7 Triglycerides Cholesterol LDL Cholesterol Direct HDL Direct TSH TSH (Reflex) Random Cortisol 5.81 08/16/21 08/16/21 08/16/21 17:09 11:34 11:34 POC Capillary Glucose Hemoglobin A1c Lactic Acid Magnesium Troponin
--- NOTE | 2021-08-24 10:06 | PC.NURSE ---
LESIA is negative. Dr. Dequan nixon.
== END 2021-08-17 16:53 | disposition home or self-care (01) ==
LOC: ANHED 11:29 → ANHIMU 20:22
PROVIDERS: Emergency Medicine; Nurse Practitioner; Admitting Provider Internal Medicine; Emergency Provider Emergency Medicine; Visit Provider Internal Medicine
DX: I10 Essential (primary) hypertension (principal); G81.94 Hemiplegia, unspecified affecting left nondominant side; G93.89 Other specified disorders of brain; E11.9 Type 2 diabetes mellitus without complications; M25.552 Pain in left hip; M25.551 Pain in right hip; Z79.84 Long term (current) use of oral hypoglycemic drugs; Z96.643 Presence of artificial hip joint, bilateral; Z90.710 Acquired absence of both cervix and uterus; R20.0 Anesthesia of skin; Z79.899 Other long term (current) drug therapy; M19.90 Unspecified osteoarthritis, unspecified site
CPT/HCPCS: 36415; 70450; 70491; 70553; 71046; 80053; 80061; 81003; 82533; 82948; 83036; 83605; 83690; 83735; 84443; 84484; 85025; 85610; 85730; 86038; 86140; 93005; 93880; 96361; 96372; 96374; 99285; A9270; A9577; G0378; J0360; J1650; J7030; Q9967

== ENCOUNTER → 2021-11-18 16:26 | Outpatient (CLI) | payer OTHER, SELFPAY ==
--- NOTE | ~2021-11-18 | MM_ITS ---
EXAMINATION: MM screening damaris BI w josephine HISTORY: Screening mammogram TECHNIQUE: Craniocaudal and mediolateral oblique 3-D tomosynthesis images were obtained and synthetic 2-D images were generated. CAD analysis was submitted and interpreted. COMPARISON: 07/07/2008 bilateral screening mammogram BREAST PARENCHYMAL COMPOSITION: There are scattered areas of fibroglandular density. FINDINGS: Occasional benign calcifications are noted. There is no evidence of suspicious mass, calcif ication, or architectural distortion to suggest malignancy in either breast. There has been no suspic ious interval change. IMPRESSION: 1. No mammographic evidence of malignancy. 2. Recommend routine screening mammography in one year. BI-RADS Category 2: Benign finding(s). Reviewed, dictated and finalized at location A.
== END ==
DX: Z12.31 Encounter for screening mammogram for malignant neoplasm of breast (principal)
CPT/HCPCS: 77063; 77067

== ENCOUNTER 2022-04-27 16:53 | Emergency (ER) | payer OTHER, SELFPAY ==
[2022-04-27 16:58] VITALS: BP 132/87; PULSE 53; RESP 16; TEMP 36.2; O2SAT 100
--- NOTE | 2022-04-27 17:16 | ED.EAR ---
HPI - Ear Problem General Chief complaint: Ear Stated complaint: earache Time Seen by Provider: 04/27/22 17:10 Source: patient Mode of arrival: ambulatory Limitations: no limitations History of Present Illness HPI Narrative: 67-year-old female presented for complaint of left ear pain for 2 days. She endorses right ear pain started today. She endorses radiating pain behind the left ear down to the swollen lymph node in the neck. She denies associated sinus pressure congestion, sore throat, ear drainage, tinnitus, dizziness, fevers or chills. She has chronic sinus issues and frequent ear infections for which she follows with ENT. Takes antihistamines as directed. She has been taking Tylenol for pain. Rates pain 7 out of 10. MD Complaint: ear pain Related Data Home Medications Medication Instructions Recorded Confirmed metformin 500 mg tablet 500 mg PO BID 10/23/20 04/27/22 multivitamin (Daily Multi-Vitamin 1 tablet PO DAILY 10/23/20 04/27/22 tablet) gabapentin 300 mg tablet 300 mg PO DAILY 08/13/21 04/27/22 acetaminophen 500 mg capsule 1,000 mg PO Q6H PRN Fever Or Pain 08/16/21 04/27/22 diphenhydramine 25 1 tablet PO HS PRN sleep 08/16/21 04/27/22 mg-acetaminophen 500 mg tablet (Tylenol PM Extra Strength) losartan 50 mg tablet 50 mg PO DAILY 04/27/22 04/27/22 Allergies Allergy/AdvReac Type Severity Reaction Status Date / Time ampicillin Allergy Intermediate Rash Verified 04/27/22 17:06 morphine Allergy Intermediate Itching Verified 04/27/22 17:06 Penicillins Allergy Intermediate Rash Verified 04/27/22 17:06 hydralazine AdvReac Hypotension Verified 04/27/22 17:06 Review of Systems Review of Systems: CONSTITUTIONAL: Denies malaise, chills, or fever. EYES: Denies visual changes, redness, or discharge. ENT: Denies rhinorrhea, congestion, sinus pain, and sore throat. Reports ear pain CARDIOVASCULAR: Denies chest pain, palpitations, or edema. RESPIRATORY: Denies cough or dyspnea. GASTROINTESTINAL: Denies abdominal pain, nausea, vomiting, diarrhea SKIN: Denies rash or itching. MUSCULOSKELETAL: Denies myalgia. NEUROLOGIC: Denies headache. All systems reviewed & are unremarkable except as noted in HPI and below PMFSH Past Medical History Medical History Brain mass Diabetes HTN (hypertension) Osteoarthritis Surgical History Surgical History History of section History of elective History of hip replacement xander History of lumpectomy History of total hysterectomy [place] teeth removed Family History Family History Mother Hypertension Family history of smoking Family history of malignant neoplasm of uterus Acute myocardial infarction Father Family history of alcoholism Sibling Family history of hypothyroidism Family history of diabetes mellitus in first degree relative Diabetes mellitus brother Hypertension brother Acute myocardial infarction brother Other Family history of malignant neoplasm of breast Social History Social History Social History: The patient is and has no children. 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 She is a lifelong nonsmoker and rarely drinks she does not use any marijuana or illicit drugs. She works for a [employer]. Smoking status: Never smoker Alcohol intake: current Drinks per week: 4 Substance use: never Spiritual care concerns: No Comments At time of signature, agree with nursing past medical, surgical, social and family history. There is no relevant family history pertinent to the presenting complaint Exam Narrative: GENERAL: Well-appearing HEAD: Normocephalic EYES: PERRLA, conjunctivae clear ENT: Nares clear. Mucous membranes moist. Dodie arambula
== END 2022-04-27 17:25 | disposition home or self-care (01) ==
PROVIDERS: Emergency Provider Nurse Practitioner Family
DX: H92.03 Otalgia, bilateral (principal); E11.9 Type 2 diabetes mellitus without complications; I10 Essential (primary) hypertension; M19.90 Unspecified osteoarthritis, unspecified site; Z96.643 Presence of artificial hip joint, bilateral
CPT/HCPCS: 99211; G0463

== ENCOUNTER 2022-08-01 10:50 | Observation (INO) | payer OTHER, SELFPAY ==
[2022-08-01] VITALS (36 sets, daily range): BP systolic 150–197; BP diastolic 73–99; PULSE 44–67; RESP 9–21; TEMP 36.3–36.6; O2SAT 98–100; BMI 29.7
--- NOTE | ~2022-08-01 | CT_ITS ---
EXAMINATION: CT brain wo con DATE: 08/01/2022 11:57 INDICATION: Left-sided tingling. Headache. TECHNIQUE: Computed tomography (CT) of the head was performed without intravenous contrast. The mA wa s adjusted according to patient size. Iterative reconstruction technique was employed. The dose-lengt h product was 529.67 mGy-cm. COMPARISON: Head CT 08/16/2021, 02/14/05, brain MRI 08/17/21 FINDINGS: There is a 6 mm subependymal mass in right lateral ventricle that is isodense to daniels matte r. There is no intracranial hemorrhage or abnormal mass lesion. The ventricles are normal in size. Th e paranasal sinuses are clear. The mastoid air cells are normal. IMPRESSION: 1. 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 Reviewed, dictated and finalized at location A. ER FLOATER IMPRESSION: 1. 6 mm subependymal mass in right lateral ventricle, stable from 02/14/2005, mo st likely daniels matter heterotopia.
--- NOTE | ~2022-08-01 | XR_ITS ---
EXAMINATION: XR chest 2V DATE: 08/01/2022 12:03 INDICATION: Weakness. Left arm tingling. Shortness of breath. TECHNIQUE: Frontal and lateral views of the chest were obtained. COMPARISON: Chest 2 views 08/16/21, chest CT 02/26/2017 FINDINGS: There is no pneumonia, pleural effusion, or pneumothorax. Cardiomegaly is noted. IMPRESSION: 1. Cardiomegaly. Reviewed, dictated and finalized at location A. ISTRY PROFESSOR IMPRESSION: 1. Cardiomegaly.
--- NOTE | ~2022-08-01 | US_ITS ---
EXAMINATION: US carotid duplex BI DATE: 08/02/2022 10:55 INDICATION: Cerebrovascular accident. Left face paresthesias. TECHNIQUE: Grayscale, color Doppler, and pulsed Doppler images of the cervical carotid arteries were obtained. The degree of vessel stenosis is placed in one of the following categories: normal, <50%, 5 0-69%, >=70% but less than near-occlusion, near-occlusion, or total occlusion. Note that percent sten osis relative to normal distal artery lumen diameter is indirectly measured from velocity measurement s as described by Jerome, et al. Radiology 2003; 229:340-346. COMPARISON: Ultrasound 08/17/2021 FINDINGS: RIGHT: The right common carotid artery (CCA) peak systolic velocity (PSV) is 75 cm/s. The right internal car otid artery (ICA) PSV is 56 cm/s. The right ICA end-diastolic velocity (EDV) is 22 cm/s. The right IC A/CCA PSV ratio is 0.8. Grayscale and color Doppler images yield an estimate of <50% diameter reducti on from plaque in the ICA. There is antegrade flow in the right vertebral artery. LEFT: The left CCA PSV is 68 cm/s. The left ICA PSV is 98 cm/s. The left ICA EDV is 37 cm/s. The left ICA/C CA PSV ratio is 1.4. Grayscale and color Doppler images yield an estimate of <50% diameter reduction from plaque in the ICA. There is antegrade flow in the left vertebral artery. IMPRESSION: 1. <50% stenosis in the right internal carotid artery. 2. <50% stenosis in the left internal carotid artery. Reviewed, dictated and finalized at location A. T IRONER SUPERVISOR
--- NOTE | ~2022-08-01 | MR_ITS ---
MRI of the brain Clinical History: Left facial paresthesia Technique: Axial and sagittal T1-weighted images were acquired. These were followed by axial T2-weigh lizbeth, diffusion weighted, gradient, and FLAIR images. Following intravenous administration of 19 cc Mu ltiHance gadolinium, T1-weighted fat-sat imaging was performed in the axial, coronal, and sagittal pl anes. COMPARISON: 08/17/2021 Findings: No significant signal abnormality seen in the brain parenchyma. No acute infarct, internal hemorrhage, or mass lesion. Ventricles and subarachnoid spaces are unremarkable. Orbits are unremarkable. Paranasal sinuses and m astoid air cells are clear. Major intracranial flow voids appear intact. Sagittal midline structures are intact. No abnormal postcontrast enhancement identified. IMPRESSION: Unremarkable exam. Reviewed, dictated and finalized at location . ER IMPRESSION: Unremarkable exam.
--- NOTE | 2022-08-01 11:18 | ECG_ITS ---
Measurements Intervals [place] Rate: 51 P: 61 VT: 183 QRS: 20 QRSD: 85 T: -31 QT: 437 QTc: 406 Interpretive Statements SINUS BRADYCARDIA NONSPECIFIC T-WAVE ABNORMALITY- INFERIOR LEADS BORDERLINE ECG COMPARED TO ECG 08/16/2021 10:41:12 SINUS BRADYCARDIA NOW PRESENT Electronically Signed On 08-01-2022 14:53:40 ANODIZE MACHINE OPERATOR by Garrison Maxwell D.O.
[2022-08-01 12:05] LABS: Basophils Percent Auto 0.4 % (0.2-1.2); Eosinophils Absolute Auto 0.1 K/mm3 (0-0.3); Eosinophils Percent Auto 2.6 % (0-4.4); Hematocrit 37.9 % (37.0-47.0); Hemoglobin 13.3 g/dL (12.0-15.0); Immature Granulocyte Absolute 0.01 K/mm3 (0.00-0.031); Immature Granulocyte Percent A 0.2 % (0-0.5); Lymphocytes Percent Auto 39.5 % (18.3-44.2); Mean Corpuscular HGB Conc 35.1 g/dl (32-36); Mean Corpuscular Hemoglobin 28.4 pg (26-34); Mean Corpuscular Volume 80.8 fl (80-100); Mean Platelet Volume 10.3 fl (7.4-10.4); Monocytes Absolute Auto 0.6 K/mm3 (0.1-0.6); Monocytes Percent Auto 12.3 % (2.6-8.5); Neutrophils Absolute Auto 2.1 K/mm3 (1.3-6.7); Platelet Count Result 278 k/mm3 (150-375); Red Blood Count 4.69 M/mm3 (4.2-5.4); Red Cell Distribution Width 15.2 % (11.5-14.5); White Blood Count 4.6 K/mm3 (4.5-10.0)
[2022-08-01 12:08] LABS: Alanine Aminotransferase 80 U/L (6-35); Albumin Level 4.5 g/dL (3.5-5.1); Alkaline Phosphatase 125 U/L (38-126); Anion Gap 7 mmol/L (8-16); Aspartate Amino Transferase 43 U/L (14-36); Bilirubin,Total 0.6 mg/dL (0.2-1.3); Blood Urea Nitrogen 12 mg/dL (7-17); Carbon Dioxide 28 mmol/L (22-30); Chloride 104 mmol/L (98-107); Estimated CRCL calculation 96 ml/min; Estimated Glomerular Filt Rate > 60; Glucose 133 mg/dL (65-110); Potassium 4.1 mmol/L (3.4-5.0); Sodium 139 mmol/L (137-145)
[2022-08-01 12:17] LABS: INR 1.1; Prothrombin Time 13.8 Seconds (11.1-14.7)
[2022-08-01 12:18] LABS: Partial Thromboplastin Time 24.6 SECONDS (22.3-36.8)
[2022-08-01 12:19] LABS: Troponin I < 0.012 ng/mL (0.000-0.034)
[2022-08-01] MEDS: ENALAPRILAT 1.25 MG/ML VIAL IV PUSH (12:46)
--- NOTE | 2022-08-01 13:24 | ED.NEUROSD ---
HPI - Neuro Symptoms/Deficit General Chief Complaint: Neuro Symptoms/Deficit Stated Complaint: tingling on left side of face HTN Time Seen by Provider: 08/01/22 11:15 Source: patient and RN notes reviewed Mode of arrival: ambulatory Limitations: no limitations History of Present Illness HPI Narrative: THis is a 67 year old female with history of hypertension who presents for evaluation of hypertension and tingling to face. She states she has been taking losartan and metoprolol for 1 year without any issues. For the past 2 days, her blood pressure has been elevated to systolic 180s-200. She also reports she has noticed left facial tingling this morning when she woke up at 9 am. She went to sleep at 7 am this morning without symptoms. She noticed buzzing sensation in left forearm yesterday. She denies slurred speech, chest pain, sob, focal weakness, nausea or vomiting. She reports frontal headache today, and she thinks her left eye may be more blurred than usual. She has taken her morning medications. Related Data Home Medications Medication Instructions Recorded Confirmed metformin 500 mg tablet 500 mg PO BID 10/23/20 08/01/22 multivitamin (Daily Multi-Vitamin 1 tablet PO DAILY 10/23/20 08/01/22 tablet) gabapentin 300 mg tablet 600 mg PO HS 08/13/21 08/01/22 acetaminophen 500 mg capsule 1,000 mg PO Q6H PRN Fever Or Pain 08/16/21 04/27/22 diphenhydramine 25 1 tablet PO HS PRN sleep 08/16/21 04/27/22 mg-acetaminophen 500 mg tablet (Tylenol PM Extra Strength) losartan 50 mg tablet 50 mg PO BID 04/27/22 08/01/22 Allergies Allergy/AdvReac Type Severity Reaction Status Date / Time ampicillin Allergy Intermediate Rash Verified 08/01/22 11:00 morphine Allergy Intermediate Itching Verified 08/01/22 11:00 Penicillins Allergy Intermediate Rash Verified 08/01/22 11:00 hydralazine AdvReac Hypotension Verified 08/01/22 11:00 Review of Systems Review of Systems: All systems reviewed & are unremarkable except as noted in HPI and below Constitutional: Constitutional: Denies weakness Eyes: Eyes: Reports change in vision Cardiovascular: Cardiovascular: Denies syncope, Denies rapid heart rate, Denies irregular heart rhythm, Denies leg edema and Denies dyspnea Respiratory: Respiratory: Denies chest congestion, Denies hemoptysis, Denies excessive phlegm production and Denies dyspnea Gastrointestinal: Gastrointestinal: Denies abdominal pain, Denies hematochezia, Denies diarrhea and Denies vomiting Genitourinary: Genitourinary: Denies hematuria and Denies dysuria Musculoskeletal: Musculoskeletal: Denies joint swelling, Denies loss of height and Denies muscle weakness Neurologic: Denies syncope, Denies focal weakness, Reports numbness and Denies weakness PMFSH Past Medical History Medical History Brain mass Diabetes HTN (hypertension) Osteoarthritis Surgical History Surgical History History of section History of elective History of hip replacement xander History of lumpectomy History of total hysterectomy [place] teeth removed Family History Family History Mother Hypertension Family history of smoking Family history of malignant neoplasm of uterus Acute myocardial infarction Father Family history of alcoholism Sibling Family history of hypothyroidism Family history of diabetes mellitus in first degree relative Diabetes mellitus brother Hypertension brother Acute myocardial infarction brother Other Family history of malignant neoplasm of breast Social History Social History Social History: The patient is and has no children. 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 She is a lifelong nonsmoker and rarely drinks she does not
--- NOTE | 2022-08-01 15:30 | PM.IMHP ---
H&P: HPI History of Present Illness Date/Time: 08/01/22 15:30 Chief Complaint: Elevated blood pressure, left face tingling. Narrative: This is a pleasant 67-year-old female with hypertension and type 2 diabetes mellitus who presented to the emergency department via EMS from home for evaluation of elevated blood pressure readings and left face tingling. She has been feeling in her usual state of health and when she got up this morning she noticed a mild frontal headache and numbness and tingling on the left side of her face and lips, sparing the tongue. She had similar tingling in the left arm yesterday but that resolved within several hours. As usual she checked her blood pressure upon waking and it has been running anywhere between the 180s to low 200 systolic. This is quite unusual for her and she rarely sees systolic blood pressure of 140 or above. After speaking with her doctor she was referred to the emergency department. She states compliance with her antihypertensives and she has not had any changes in her medications and she has not had any marked change in stress. Her blood pressure was 191/99 on arrival to the emergency department she was given 1.25 milligrams of Enalaprilat with improvement, blood pressures are now running in the 150s to [address] showed a stable 6 millimeter subependymal mass in the right lateral ventricle (probable daniels matter heterotopia) with no other acute findings. She is being admitted in this setting for further evaluation of the left facial paresthesias. At the time my evaluation she is resting comfortably and has no complaints aside from that as detailed above. She denies vertigo, visual changes, focal weakness, facial droop, and difficulties speaking and swallowing. She has no known history of cardiac dysrhythmia and denies sensations of racing heart and palpitations. Review of Systems Review of Systems: Twelve systems were reviewed and are negative except for as per HPI. 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 Type 2 diabetes mellitus Surgical History Surgical History (Updated 08/01/22 @ 19:54 by Mouna Galloway PA-C) History of bilateral hip replacements History of elective History of lumpectomy Benign. History of total hysterectomy [place] teeth removed Family History Family History Mother Hypertension Family history of smoking Family history of malignant neoplasm of uterus Acute myocardial infarction Father Family history of alcoholism Sibling Family history of hypothyroidism Family history of diabetes mellitus in first degree relative Diabetes mellitus brother Hypertension brother Acute myocardial infarction brother Other Family history of malignant neoplasm of breast Social History Social History (Updated 08/01/22 @ 19:57 by Mouna Galloway PA-C) Social History: . Lives with spouse in [place]. Lifelong nonsmoker. Social alcohol use. No illicit substance use. Works for [employer]. Surrogate decision maker: Jermain Lee, spouse. Code status: Full code. Social determinants of health: None identified, RN screening pending. Spiritual care concerns: No Meds Home Medications and Allergies Home Medications Medication Instructions Recorded Confirmed Type metformin 500 mg tablet 500 mg PO BID 10/23/20 08/01/22 History multivitamin (Daily Multi-Vitamin 1 tablet PO DAILY 10/23/20 08/01/22 History tablet) gabapentin 300 mg tablet 600 mg PO HS 08/13/21 08/01/22 History acetaminophen 500 mg capsule 1,000 mg PO Q6H PRN Fever Or Pain 08/16/21 04/27/22 History diphenhydramine 25 1 tablet PO HS PRN sleep 08/16/21 04/27/22 History mg-acetaminophen 500 mg tablet (Tylenol PM Ex
[2022-08-01] MEDS: ACETAMINOPHEN 500 MG TABLET 1000 MG PO (20:38)
[2022-08-02] VITALS: PULSE 68
[2022-08-02 04:00] VITALS: PULSE 61
[2022-08-02 06:00] VITALS: BP 142/83; PULSE 57; RESP 18; TEMP 36.4; O2SAT 100
[2022-08-02 07:26] LABS: Alanine Aminotransferase 65 U/L (6-35); Alkaline Phosphatase 105 U/L (38-126); Anion Gap 6 mmol/L (8-16); Aspartate Amino Transferase 33 U/L (14-36); Bilirubin,Total 0.3 mg/dL (0.2-1.3); Blood Urea Nitrogen 13 mg/dL (7-17); Calcium 8.5 mg/dL (8.4-10.2); Carbon Dioxide 28 mmol/L (22-30); Chloride 106 mmol/L (98-107); Cholesterol 159 mg/dL (0-200); Creatine Kinase 49 U/L (30-135); Estimated CRCL calculation 98 ml/min; Estimated Glomerular Filt Rate > 60; Glucose 155 mg/dL (65-110); HDL Direct 71 mg/dL; Magnesium 2.2 mg/dL (1.6-2.3); Sodium 140 mmol/L (137-145); Triglycerides 57 mg/dL (<150)
[2022-08-02 07:37] LABS: Basophils Percent Auto 0.6 % (0.2-1.2); Eosinophils Absolute Auto 0.1 K/mm3 (0-0.3); Eosinophils Percent Auto 1.7 % (0-4.4); Hematocrit 36.2 % (37.0-47.0); Hemoglobin 12.6 g/dL (12.0-15.0); Immature Granulocyte Absolute 0.01 K/mm3 (0.00-0.031); Immature Granulocyte Percent A 0.3 % (0-0.5); LDL Cholesterol Direct 60 mg/dL; Lymphocytes Absolute Auto 1.54 K/mm3 (0.9-3.2); Lymphocytes Percent Auto 43.3 % (18.3-44.2); Mean Corpuscular HGB Conc 34.8 g/dl (32-36); Mean Corpuscular Hemoglobin 28.3 pg (26-34); Mean Corpuscular Volume 81.2 fl (80-100); Mean Platelet Volume 10.3 fl (7.4-10.4); Monocytes Absolute Auto 0.5 K/mm3 (0.1-0.6); Monocytes Percent Auto 13.2 % (2.6-8.5); Neutrophils Absolute Auto 1.5 K/mm3 (1.3-6.7); Neutrophils Percent Auto 40.9 % (45.5-73.1); Platelet Count Result 240 k/mm3 (150-375); Red Blood Count 4.46 M/mm3 (4.2-5.4); Red Cell Distribution Width 14.9 % (11.5-14.5); White Blood Count 3.6 K/mm3 (4.5-10.0)
--- NOTE | 2022-08-02 08:05 | P.PNIM_ITS ---
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 * MRI ordered * Lipid panel ordered * Echo ordered * Carotid doppler ordered * Continue aspirin * Consider statin, and plavix when testing comes back * BP control (2) Hypertensive urgency: Code(s): I16.0 - Hypertensive urgency Status: Acute Assessment and Plan: * BP upon arrival 191/99 * Enalipril IV was given with response * BP has been stable in the 140-160 systolic * Continue home medications, losartan, metoprolol * Trend BP * Adjust therapy as indicated (3) Cardiomegaly: Code(s): I51.7 - Cardiomegaly Status: Acute Assessment and Plan: * Chest x-ray show evidence of cardiomegaly without any acute pulmonary findings. * echocardiogram ordered for a.m. 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 15:30 This is a pleasant 67-year-old female with hypertension and type 2 diabetes mellitus who presented to the emergency department via EMS from home for evaluation of elevated blood pressure readings and left face tingling. She has been feeling in her usual state of health and when she got up this morning she noticed a mild frontal headache and numbness and tingling on the left side of her face and lips, sparing the tongue. She had similar tingling in the left arm yesterday but that resolved within several hours. As usual she checked her blood pressure upon waking and it has been running anywhere between the 180s to low 200 systolic. This is quite unusual for her and she rarely sees systolic blood pressure of 140 or above. After speaking with her doctor she was referred to the emergency department. She states compliance with her antihypertensives and she has not had any changes in her medications and she has not had any marked change in stress. Her blood pressure was 191/99 on arrival to the emergency department she was given 1.25 milligrams of Enalaprilat with improvement, blood pressures are now running in the 150s to [address]
--- NOTE | 2022-08-02 08:05 | PM.IMPN ---
Progress Note: A&P Assessment and Plan (1) Facial paresthesia: Code(s): R20.2 - Paresthesia of skin Status: Acute Assessment and Plan: Presented for evaluation of left-sided facial paresthesias, and left arm paresthesias which resolved within a few hours blood pressures noted to be up to [address] did not show any evidence of acute or subacute stroke but did note a stable 6 millimeter subepidermal mass in the right lateral ventricle, most likely daniels matter heterotopia. MRI ordered Lipid panel ordered Echo ordered Carotid doppler ordered Continue aspirin Consider statin, and plavix when testing comes back BP control (2) Hypertensive urgency: Code(s): I16.0 - Hypertensive urgency Status: Acute Assessment and Plan: BP upon arrival 191/99 Enalipril IV was given with response BP has been stable in the 140-160 systolic Continue home medications, losartan, metoprolol Trend BP Adjust therapy as indicated (3) Cardiomegaly: Code(s): I51.7 - Cardiomegaly Status: Acute Assessment and Plan: Chest x-ray show evidence of cardiomegaly without any acute pulmonary findings. echocardiogram ordered for a.m. 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 15:30 This is a pleasant 67-year-old female with hypertension and type 2 diabetes mellitus who presented to the emergency department via EMS from home for evaluation of elevated blood pressure readings and left face tingling. She has been feeling in her usual state of health and when she got up this morning she noticed a mild frontal headache and numbness and tingling on the left side of her face and lips, sparing the tongue. She had similar tingling in the left arm yesterday but that resolved within several hours. As usual she checked her blood pressure upon waking and it has been running anywhere between the 180s to low 200 systolic. This is quite unusual for her and she rarely sees systolic blood pressure of 140 or above. After speaking with her doctor she was referred to the emergency department. She states compliance with her antihypertensives and she has not had any changes in her medications and she has not had any marked change in stress. Her blood pressure was 191/99 on arrival to the emergency department she was given 1.25 milligrams of Enalaprilat with improvement, blood pressures are now running in the 150s to [address] showed a stable 6 millimeter subependymal mass in the right lateral ventricle (probable daniels matter heterotopia) with no other acute findings. She is being admitted in this setting for further evaluation of the left facial paresthesias. At the time my evaluation she is resting comfortably and has no complaints aside from that as detailed above. She denies vertigo, visual changes, focal weakness, facial droop, and difficulties speaking and swallowing. She has no known history of cardiac dysrhythmia and denies sensations of racing heart and palpitations. Review of Systems Review
[2022-08-02 08:29] LABS: Hemoglobin A1C 7.1 % (<5.7)
[2022-08-02] MEDS: MULTIVITAMINS THERAPEUTIC TAB (*BKC) 1 TABLET PO (11:00)
[2022-08-02] MEDS: LOSARTAN POTASSIUM 50 MG TABLET PO (11:00)
[2022-08-02] MEDS: ASPIRIN 81 MG ENTERIC TABLET PO (11:00)
--- NOTE | 2022-08-02 11:00 | P.DS_ITS ---
DS: Admitting Diagnosis Discharge Date 08/02/22 1100 Admitting Diagnosis Malcolm's palsy, hypertensive urgency DS: Discharge Diagnosis Discharge Diagnosis (1) Facial paresthesia: Code(s): R20.2 - Paresthesia of skin Status: Acute Assessment and Plan: * Presented for evaluation of left-sided facial paresthesias, and left arm paresthesias which resolved within a few hours * blood pressures noted to be up to 200 systolic * Brain CT did not show any evidence of acute or subacute stroke but did note a stable 6 millimeter subepidermal mass in the right lateral ventricle, most likely daniels matter heterotopia. * MRI ordered * Lipid panel ordered * Echo ordered * Carotid doppler ordered * Continue aspirin * Consider statin, and plavix when testing comes back * BP control (2) Hypertensive urgency: Code(s): I16.0 - Hypertensive urgency Status: Acute Assessment and Plan: * BP upon arrival 191/99 * Enalipril IV was given with response * BP has been stable in the 140-160 systolic * Continue home medications, losartan, metoprolol * Trend BP * Adjust therapy as indicated (3) Cardiomegaly: Code(s): I51.7 - Cardiomegaly Status: Acute Assessment and Plan: * Chest x-ray show evidence of cardiomegaly without any acute pulmonary findings. * echocardiogram ordered for a.m. 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 Brain MRI was n egative for any acute abnormality. CT of the showed a 6 mm mass that is stable food since 2004. Neurology was consulted and patient was pills palsy and will need follow-up with neurology in 4 months. Patient was also noted to have a blood pressure is between 180-200 systolic. Patient stated that at home she was 202/101 and was directed by her doctor to come to the ED. she has been taking her blood pressure medications appropriately and she does check her blood pressure quite often at home. She denies any chest pain, shortness a breath, nausea, vomiting, diarrhea, constipation, weakness or fatigue. Patient stated that she does understand why her blood pressure is high however she has a has moments sometimes. Patient was concerned about her metoprolol dose as her heart rate did get his the 40s overnight. She stated that she would be willing to take 25 mg over the 37.5. Told the patient to start taking her hydrochlorothiaz
--- NOTE | 2022-08-02 11:00 | PM.DS ---
DS: Admitting Diagnosis Discharge Date 08/02/22 1100 Admitting Diagnosis Malcolm's palsy, hypertensive urgency DS: Discharge Diagnosis Discharge Diagnosis (1) Facial paresthesia: Code(s): R20.2 - Paresthesia of skin Status: Acute Assessment and Plan: Presented for evaluation of left-sided facial paresthesias, and left arm paresthesias which resolved within a few hours blood pressures noted to be up to [address] did not show any evidence of acute or subacute stroke but did note a stable 6 millimeter subepidermal mass in the right lateral ventricle, most likely daniels matter heterotopia. MRI ordered Lipid panel ordered Echo ordered Carotid doppler ordered Continue aspirin Consider statin, and plavix when testing comes back BP control (2) Hypertensive urgency: Code(s): I16.0 - Hypertensive urgency Status: Acute Assessment and Plan: BP upon arrival 191/99 Enalipril IV was given with response BP has been stable in the 140-160 systolic Continue home medications, losartan, metoprolol Trend BP Adjust therapy as indicated (3) Cardiomegaly: Code(s): I51.7 - Cardiomegaly Status: Acute Assessment and Plan: Chest x-ray show evidence of cardiomegaly without any acute pulmonary findings. echocardiogram ordered for a.m. 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 Brain MRI was negative for any acute abnormality. CT of the showed a 6 mm mass that is stable food since 2004. Neurology was consulted and patient was pills palsy and will need follow-up with neurology in 4 months. Patient was also noted to have a blood pressure is between 180-200 systolic. Patient stated that at home she was 202/101 and was directed by her doctor to come to the ED. she has been taking her blood pressure medications appropriately and she does check her blood pressure quite often at home. She denies any chest pain, shortness a breath, nausea, vomiting, diarrhea, constipation, weakness or fatigue. Patient stated that she does understand why her blood pressure is high however she has a has moments sometimes. Patient was concerned about her metoprolol dose as her heart rate did get his the 40s overnight. She stated that she would be willing to take 25 mg over the 37.5. Told the patient to start taking her hydrochlorothiazide with her losartan and metoprolol daily for better blood pressure control. Currently patient is stable and she is anxiously awaiting discharge. Currently the patient blood pressure is 142/78. Patient is stable per labs and vital signs for discharge at this time. Patient does have an appointment with her primary care provider next week. Asked the patient to check her blood pressure twice a day and write the values down in order to take them to her primary care provider for further instructions. Status at Discharge Functional status at discharge: independent ambu
[2022-08-02 11:01] VITALS: PULSE 61
[2022-08-02] MEDS: metFORMIN HCL 500 MG TABLET PO (11:01)
[2022-08-02] MEDS: METOPROLOL TARTRATE 25 MG TABLET PO (11:01)
[2022-08-02 11:47] LABS: Glucose Point of Care 140 mg/dl (65-105)
--- NOTE | 2022-08-02 11:53 | WPDNEURCNPN ---
Assessment and Plan Assessment and plan (1) Facial paresthesia: Code(s): R20.2 - Paresthesia of skin Status: Acute (2) Type 2 diabetes mellitus: Code(s): E11.9 - Type 2 diabetes mellitus without complications Status: Acute (3) Hypertension: Code(s): I10 - Essential (primary) hypertension Status: Acute Plan Ms. Burleson is a 67 year old female with a history of HTN, diabetes, daniels matter heterotopia presenting for evaluation of left facial numbness in the setting of hypertensive urgency. MRI brain was negative for stroke. She continues to have subjective numbness involving the left side of the face, but exam is completely non-focal with symmetric sensation and no evidence of facial droop. Headache does not seem significant enough to be hemisensory aura of migraine. Discussed that it's possible that this could be an early sign of Malcolm's Palsy, if there is isolated inflammation of CN V currently, although no evidence of CN VII involvement currently. I discussed the option of treating this as a Malcolm's Palsy type picture with a short course of oral steroids, but she has declined for now. - No further work-up needed - Follow-up in 2-3 months if numbness persists Consult date: 08/02/22 Time Seen: 11:53 Reason for consult: Headache, facial numbness HPI: Amber Burleson is a 67 year old female with a history of hypertension, diabetes, and R periventricular daniels matter heterotopia presenting due hypertension, left facial numbness, and headache. Patient reports elevated BP for two days prior to admission, up to 190s-200s systolic. At 9am on 08/01/22, she noted that the left side of her face was tingling and her left forearm had a fuzzy feeling . She also had a frontal headache and felt that the vision in her left eye was blurry. She presented to [facility] where her BP was in the 190s systolic. Her BP was treated. Her NIH score was 0. 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 EKG showed sinus bradycardia. Labs were unrevealing. Her HgbA1c was 7.1. She had an MRI brain w/wo contrast that was unrevealing and carotid doppler that was negative as well. Since being admitted, her BP has been mostly in the 140s-160s systolic. This morning she still has numbness in the left side of the face. She describes it as if someone injected Novocaine in her face. She has a mild frontal pressure like headache, but not bothersome. Her vision is back to baseline. She denies any facial drooping or any change in her taste. Review of Systems Constitutional: Constitutional: Reports no additional constitutional complaints Eyes: Eyes: Reports no additional eye complaints ENT: Reports system reviewed and no additional complaints, except as documented Cardiovascular: Cardiovascular: Reports no additional cardiovascular complaints Respiratory: Respiratory: Reports no additional respiratory complaints Gastrointestinal: Gastrointestinal: Reports no additional gastrointestinal complaints Genitourinary: Genitourinary: Reports no additional female genitourinary complaints Musculoskeletal: Musculoskeletal: Reports no additional musculoskeletal complaints Integumentary/Breasts: Skin/Breast: Reports system reviewed and no additional complaints, except as docu Neurologic: Reports as per HPI and Reports numbness Psychiatric: Psychiatric: Reports no additional psychiatric complaints PMFSH Past Medical History Medical History Hypertension Osteoarthritis Subependymal eric matter heterotopia Stable since 1st noted on 02/14/2005. Type 2 diabetes mellitus Surgical History Surgical History History of bilateral hip replacements History of elective History of lumpectomy Benign. History of total hysterectomy Stanley teeth removed Family History Fa
[2022-08-02 12:00] VITALS: PULSE 58
[2022-08-02 14:00] VITALS: BP 142/78; PULSE 73; RESP 16; TEMP 36.1; O2SAT 95
--- NOTE | 2022-08-02 19:46 | ECHO_ITS ---
Patient Info Name: Amber Burleson Age: 67 years : 1955 Gender: Female Ht: 69 in Wt: 201 lbs BSA: 2.13 m2 HR: 69 bpm BP: 160 / 73 mmHg Technical Quality: Fair Exam Date: 08/02/2022 1:38 PM Exam Location: [facility] Patient Status: Outpatient Admit Date: 08/01/2022 Staff Ordering Physician: Mouna Galloway PA-C Final Expense Agent: Michael Moon RDCS, RT Attending Provider: Brodie Leonardo MD Referring Physician: Nilesh BROWN; Exam Type: CA echo doppler w bubble study Study Info Indications G45.8 - Other transient cerebral ischemic attacks and related syndromes Complete two-dimensional, color flow and Doppler transthoracic echocardiogram is performed. Summary 1. Complete two-dimensional, color flow and Doppler transthoracic echocardiogram is performed. 2. Left ventricular chamber dimension is normal. 3. Left ventricular systolic function is normal, estimated at 60-65%. 4. The left ventricular diastolic function is grade II diastolic dysfunction. 5. E/e' 10 is mildly elevated. 6. There is mild tricuspid valve regurgitation. 7. No pulmonary hypertension, estimated pulmonary arterial systolic pressure is 35 mmHg. 8. There is trace pulmonic regurgitation. Left Ventricle E/e' 10 is mildly elevated. Left ventricular chamber dimension is normal. Left ventricular systolic function is normal, estimated at 60-65%. The left ventricular diastolic function is grade II diastolic dysfunction. Right Ventricle Right ventricular systolic function is normal and with normal TAPSE 2.5 cm. Right ventricular chamber dimension is normal. Left Atria Left atrial chamber dimension is normal. Right Atria Right atrial chamber dimension is normal. Atrial Septum Agitated saline injection with and without valsalva maneuver opacified right side cardiac chambers without shunt to left side cardiac chambers. Intact interatrial septum visualized by 2D and agitated saline imaging. Aortic Valve The aortic valve is trileaflet. There is no aortic valve stenosis. There is no aortic valve regurgitation. Pulmonic Valve There is trace pulmonic regurgitation. Mitral Valve There is no mitral valve stenosis. There is no mitral valve regurgitation. Tricuspid Valve There is mild tricuspid valve regurgitation. No pulmonary hypertension, estimated pulmonary arterial systolic pressure is 35 mmHg. Pericardium/Pleural There is no pericardial effusion. Inferior Vena Cava Inferior vena cava is not well visualized. Aorta The aortic root size at the sinus of Valsalva is normal. Left Ventricular Outflow Tract Name Value Normal LVOT 2D LVOT Diameter 2.0 cm LVOT Doppler LVOT Peak Gradient 3 mmHg LVOT Mean Gradient 2 mmHg LVOT VTI 21 cm LVOT VTI/AV VTI Ratio 0.7 LVOT Stroke Volume 64 ml LVOT CO 4.1 l/min LVOT CI 1.9 l/min/m2 Mitral Valve
== END 2022-08-02 16:52 | disposition home or self-care (01) ==
LOC: ANHED 11:20 → ANH3MEDSUR 15:19
PROVIDERS: Physician Assistant; Admitting Provider Chiropractor; Emergency Provider General Practice; Visit Provider Chiropractor
DX: I16.0 Hypertensive urgency (principal); R20.2 Paresthesia of skin; I11.9 Hypertensive heart disease without heart failure; Q04.8 Other specified congenital malformations of brain; I65.23 Occlusion and stenosis of bilateral carotid arteries; R79.89 Other specified abnormal findings of blood chemistry; Z79.84 Long term (current) use of oral hypoglycemic drugs; E11.9 Type 2 diabetes mellitus without complications; M19.90 Unspecified osteoarthritis, unspecified site
CPT/HCPCS: 36415; 70450; 70553; 71046; 80053; 80061; 82550; 82607; 82948; 83036; 83735; 84443; 84484; 85025; 85610; 85730; 93005; 93306; 93880; 96374; 96375; 99285; A9270; A9577; G0378

== ENCOUNTER 2023-07-04 11:08 | Outpatient (CLI) | payer OTHER, SELFPAY ==
--- NOTE | ~2023-07-04 | XR_ITS ---
EXAM: XR lumbar spine min 4V DATE: 07/04/2023 11:38 HISTORY: LOW BACK PAIN, NKI . COMPARISON: 11/12/2013. FINDINGS: Partially visualized bilateral hip arthroplasty 5 nonrib-bearing lumbar-type vertebral bodi es. Pedicles intact. 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 Vertebral body heights preserved. Alte red level disc space narrowing and marginal osteophytosis, severe at L5-S1. Multilevel severe facet h ypertrophy and sclerosis. No fracture or dislocation. 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 Sever e L5-S1 degenerative disc disease. Multilevel severe facet arthropathy. Reviewed, dictated and finalized at location [facility]. 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 Severe L5-S1 degenerative disc disease. Multilevel severe face t arthropathy.
== END 2023-07-04 11:09 | disposition home or self-care (01) ==
PROVIDERS: Visit Provider Physician Assistant
DX: M51.36 Other intervertebral disc degeneration, lumbar region (principal); M47.817 Spondylosis without myelopathy or radiculopathy, lumbosacral region
CPT/HCPCS: 72110